=== PATIENT | male | born 1960 | race African-American/Black ===

== ENCOUNTER 2017-12-29 03:56 | Inpatient (IN) | payer OTHER ==
[~2017-12-29] VITALS: Ht 175.3 cm; Wt 64.9 kg
[~2017-12-29 03:56] MED LIST: MOTRIN600 MG PO
[2017-12-29 05:13] LABS: ALBUMIN 4.1 g/dL (3.2-4.8); CHLORIDE 106 mEq/L (99-109); POTASSIUM 3.3 mEq/L (3.7-5.4); SODIUM 142 mEq/L (136-147)
[2017-12-29 05:15] LABS: GLUCOSE 93 mg/dL (70-99); TOTAL PROTEIN 6.8 g/dL (6.4-8.3)
[2017-12-29 05:17] LABS: TOTAL BILIRUBIN 0.7 mg/dL (0.0-1.0)
[2017-12-29 05:18] LABS: SERUM ETHYL ALCOHOL 73 mg/dL
[2017-12-29 05:19] LABS: ALKALINE PHOSPHATASE 75 IU/L (3-129); CREATININE 0.7 mg/dL (0.6-1.3); GFR ESTIMATE (CALCULATED) > 59 mL/min/ (58.99-99999)
[2017-12-29 05:20] LABS: AST (GOT) 125 IU/L (2-34); UREA NITROGEN (BUN) 10 mg/dL (9-23)
[2017-12-29 05:22] LABS: ALT (GPT) 83 IU/L (3-49); LIPASE 23 U/L (1.0-51.0); TROP-I INTERPRETATION NEGATIVE; TROPONIN-I 0.01 ng/mL (0.0-0.30)
[2017-12-29 05:26] LABS: HEMATOCRIT 37.6 % (38.0-50.0); HEMOGLOBIN 13.3 G/DL (12.5-16.6); MCHC 35.4 G/DL (30.0-36.0); MCV 98.9 FL (86-99); PLATELET COUNT 171 K/uL (156-360); RBC DIS.WIDTH-CV 12.6 % (11.8-14.6); RBC DIS.WIDTH-SD 45.8 % (39-53); WHITE BLOOD COUNT 9.1 K/uL (4.1-10.2)
[2017-12-29 05:57] LABS: APPEARANCE CLEAR ((CLEAR)); BILIRUBIN NEGATIVE; BLOOD NEGATIVE; COLOR YELLOW ((YELLOW)); GLUCOSE (STRIP) NEGATIVE; KETONES 20; LEUKOCYTES NEGATIVE; NITRITE NEGATIVE; PROTEIN (STRIP) NEGATIVE; SPECIFIC GRAVITY 1.024 (1.000-1.030); UCUL ADDED? NO; UROBILINOGEN 0.2 MG/DL (0.2-1.0)
[2017-12-29] MEDS ORDERED: AMLODIPINE BESYL5 MG PO (07:15)
[2017-12-29] MEDS ORDERED: BUSPAR10 MG PO (07:15)
[2017-12-29] MEDS ORDERED: PANTOPRAZOLE SO40 MG PO (07:15)
[2017-12-29] MEDS ORDERED: RANITIDINE HCL150 MG PO (07:16)
[2017-12-29 09:19] VITALS: BP 186/103
[2017-12-29 13:00] VITALS: BP 163/100
[2017-12-29 15:27] VITALS: BP 170/92
[2017-12-29 19:53] VITALS: BP 168/88
[2017-12-30] VITALS (7 sets, daily range): BP systolic 133–163; BP diastolic 90–99
[2017-12-30 06:05] LABS: HEMATOCRIT 36.8 % (38.0-50.0); MCH 34.8 PG (29.0-34.0); MCHC 35.3 G/DL (30.0-36.0); MCV 98.4 FL (86-99); PLATELET COUNT 162 K/uL (156-360); RBC DIS.WIDTH-CV 12.5 % (11.8-14.6); RBC DIS.WIDTH-SD 44.9 % (39-53); RED BLOOD COUNT 3.74 M/uL (4.00-5.50); WHITE BLOOD COUNT 6.5 K/uL (4.1-10.2)
[2017-12-30 06:30] LABS: CHLORIDE 99 MEQ/L (99-109); CREATININE 0.8 MG/DL (0.6-1.3); GFR ESTIMATE (CALCULATED) > 59 mL/min/ (58.99-99999); GLUCOSE 136 mg/dL (70-99); MAGNESIUM 1.7 mg/dl (1.3-2.7); PHOSPHORUS 4.3 mg/dL (2.5-4.9); SODIUM 138 MEQ/L (136-147); UREA NITROGEN (BUN) 8 mg/dL (9-23)
[2017-12-30 06:32] LABS: POTASSIUM 4.2 MEQ/L (3.7-5.4)
[2017-12-31] VITALS (7 sets, daily range): BP systolic 132–172; BP diastolic 76–107
[2018-01-01] VITALS (9 sets, daily range): BP systolic 140–175; BP diastolic 70–105
[2018-01-01 06:00] LABS: BASOPHIL (%) 0.6 % (0-1); EOSINOPHIL (%) 1.1 % (0-5); EOSINOPHIL COUNT 0.1 K/uL (0-0.3); HEMATOCRIT 34.9 % (38.0-50.0); IMMATURE GRANULOCYTE (%) 0.2 % (0.0-0.7); LYMPHOCYTE (%) 15.1 % (15-42); LYMPHOCYTE COUNT 0.8 K/uL (1.0-2.8); MCHC 34.4 G/DL (30.0-36.0); MCV 98.9 FL (86-99); MONOCYTE (%) 8.6 % (3-12); MONOCYTE COUNT 0.5 K/uL (0-0.8); NEUTROPHIL (%) 74.4 % (45-76); PLATELET COUNT 156 K/uL (156-360); RBC DIS.WIDTH-CV 12.2 % (11.8-14.6); RBC DIS.WIDTH-SD 44.4 % (39-53); RED BLOOD COUNT 3.53 M/uL (4.00-5.50); WHITE BLOOD COUNT 5.4 K/uL (4.1-10.2)
[2018-01-01 06:29] LABS: CHLORIDE 101 MEQ/L (99-109); CREATININE 0.6 MG/DL (0.6-1.3); GFR ESTIMATE (CALCULATED) > 59 mL/min/ (58.99-99999); POTASSIUM 3.6 MEQ/L (3.7-5.4); SODIUM 139 MEQ/L (136-147); UREA NITROGEN (BUN) 9 mg/dL (9-23)
[2018-01-01 06:30] LABS: GLUCOSE 89 mg/dL (70-99)
[2018-01-02 05:22] VITALS: BP 163/88
[2018-01-02 05:57] LABS: BASOPHIL (%) 0.4 % (0-1); EOSINOPHIL (%) 2.3 % (0-5); EOSINOPHIL COUNT 0.1 K/uL (0-0.3); HEMATOCRIT 35.3 % (38.0-50.0); HEMOGLOBIN 12.2 G/DL (12.5-16.6); IMMATURE GRANULOCYTE (%) 0.2 % (0.0-0.7); LYMPHOCYTE (%) 19.4 % (15-42); MCH 33.7 PG (29.0-34.0); MCHC 34.6 G/DL (30.0-36.0); MCV 97.5 FL (86-99); MONOCYTE (%) 10.1 % (3-12); MONOCYTE COUNT 0.5 K/uL (0-0.8); NEUTROPHIL (%) 67.6 % (45-76); NEUTROPHIL COUNT 3.6 K/uL (1.8-6.4); PLATELET COUNT 195 K/uL (156-360); RBC DIS.WIDTH-CV 12.1 % (11.8-14.6); RBC DIS.WIDTH-SD 43.5 % (39-53); RED BLOOD COUNT 3.62 M/uL (4.00-5.50); WHITE BLOOD COUNT 5.3 K/uL (4.1-10.2)
[2018-01-02 06:14] LABS: ALBUMIN 3.3 G/DL (3.2-4.8); ALKALINE PHOSPHATASE 60 IU/L (3-129); ALT (GPT) 26 IU/L (3-49); AST (GOT) 35 IU/L (2-34); CHLORIDE 102 MEQ/L (99-109); CREATININE 0.6 MG/DL (0.6-1.3); GFR ESTIMATE (CALCULATED) > 59 mL/min/ (58.99-99999); GLUCOSE 97 mg/dL (70-99); SODIUM 139 MEQ/L (136-147); TOTAL BILIRUBIN 0.9 MG/DL (0.0-1.0); TOTAL PROTEIN 6.1 G/DL (6.4-8.3); UREA NITROGEN (BUN) 7 mg/dL (9-23)
[2018-01-02 06:58] VITALS: BP 179/95
[2018-01-02 08:53] VITALS: BP 132/71
[2018-01-02 11:30] VITALS: BP 140/87
[2018-01-02 15:45] VITALS: BP 163/85
[2018-01-03 00:16] VITALS: BP 146/82
[2018-01-03 05:53] LABS: BASOPHIL (%) 0.2 % (0-1); EOSINOPHIL (%) 1.5 % (0-5); EOSINOPHIL COUNT 0.1 K/uL (0-0.3); HEMATOCRIT 35.4 % (38.0-50.0); HEMOGLOBIN 12.2 G/DL (12.5-16.6); IMMATURE GRANULOCYTE (%) 0.2 % (0.0-0.7); LYMPHOCYTE (%) 14.4 % (15-42); LYMPHOCYTE COUNT 0.7 K/uL (1.0-2.8); MCH 33.5 PG (29.0-34.0); MCHC 34.5 G/DL (30.0-36.0); MCV 97.3 FL (86-99); MONOCYTE (%) 11.8 % (3-12); MONOCYTE COUNT 0.5 K/uL (0-0.8); NEUTROPHIL (%) 71.9 % (45-76); NEUTROPHIL COUNT 3.3 K/uL (1.8-6.4); PLATELET COUNT 235 K/uL (156-360); RBC DIS.WIDTH-CV 11.9 % (11.8-14.6); RBC DIS.WIDTH-SD 43.2 % (39-53); RED BLOOD COUNT 3.64 M/uL (4.00-5.50); WHITE BLOOD COUNT 4.6 K/uL (4.1-10.2)
[2018-01-03 06:15] LABS: CHLORIDE 104 MEQ/L (99-109); CREATININE 0.7 MG/DL (0.6-1.3); GFR ESTIMATE (CALCULATED) > 59 mL/min/ (58.99-99999); GLUCOSE 127 mg/dL (70-99); POTASSIUM 3.3 MEQ/L (3.7-5.4); SODIUM 142 MEQ/L (136-147); UREA NITROGEN (BUN) 7 mg/dL (9-23)
[2018-01-03 07:11] VITALS: BP 128/75
[2018-01-03 11:13] VITALS: BP 135/81
[2018-01-03 15:19] VITALS: BP 146/84
[2018-01-03 20:00] VITALS: BP 142/80
== END 2018-01-03 22:42 | disposition left against medical advice (07) | DRG 336 ==
LOC: EME 03:56 → EDOF 06:39 → 5EAST 06:39 → 2EAST 06:39 → CANRESERV 07:27 → ENRESERV 07:27 → 5EAST 09:06 → ENRESERV 18:11 → 2EAST 19:33
PROVIDERS: Internal Medicine; Physician Assistant; Surgery
DX: K56.51 Intestinal adhesions [bands], with partial obstruction (principal); E87.2 Acidosis; F10.239 Alcohol dependence with withdrawal, unspecified; Y90.3 Blood alcohol level of 60-79 mg/100 ml; S52.501A Unspecified fracture of the lower end of right radius, initial encounter for closed fracture; R74.0 Nonspecific elevation of levels of transaminase and lactic acid dehydrogenase [LDH]; R79.89 Other specified abnormal findings of blood chemistry; I10 Essential (primary) hypertension; K21.9 Gastro-esophageal reflux disease without esophagitis; F17.200 Nicotine dependence, unspecified, uncomplicated; Z86.79 Personal history of other diseases of the circulatory system
CPT/HCPCS: 71045; 73130; 74177; 80048; 80053; 81003; 83605; 83690; 83735; 84100; 84484; 85025; 85025 91; 85027; 87040; 93005; 99281; 99285; G0480; J0131; J0330; J0360; J1170; J1644; J2060; J2250; J2270; J2405; J3010; J3411; J3480; J7030; J7120; S0028; S0074